=== PATIENT | male | born 1965 | race Two or more races ===

== ENCOUNTER 2018-01-11 16:23 | Emergency (ER) | payer OTHER ==
[~2018-01-11] VITALS: Ht 165.1 cm; Wt 81.6 kg
--- NOTE | 2018-01-11 16:53 | NUR ---
Dr Lopez at the bedside for MSE.
[2018-01-11] MEDS ORDERED: CEFTRIAXONE 500 MG VIAL ONE (17:00)
[2018-01-11] MEDS ORDERED: LIDOCAINE HCL 1% 20 ML VIAL ONE (17:00)
[2018-01-11] MEDS ORDERED: AZITHROMYCIN 250 MG TABLET ONE (17:00)
[2018-01-11] MEDS: AZITHROMYCIN 250 MG TABLET PO ONE (17:06)
[2018-01-11] MEDS: CEFTRIAXONE 500 MG VIAL IM ONE (17:06)
[2018-01-11 17:08] VITALS: BP 111/58
[2018-01-15 11:06] LABS: *GC NAA Positive (Negative); *TRIC.VAG. NAA Negative (Negative)
== END 2018-01-11 17:09 | disposition home or self-care (01) ==
LOC: ER 16:27
DX: N34.2 Other urethritis (principal); F17.200 Nicotine dependence, unspecified, uncomplicated
CPT/HCPCS: 87491; A4663; J0696; J3490; Q0144